=== PATIENT | female | born 2000 | race Caucasian/White ===

== ENCOUNTER 2022-08-01 11:10 | Emergency (ER) | payer OTHER, SELFPAY ==
[2022-08-01 11:16] VITALS: BP 148/82; PULSE 72; RESP 18; TEMP 36.2; O2SAT 99; BMI 27.4
== END 2022-08-01 17:15 | disposition left against medical advice (07) ==
PROVIDERS: Emergency Provider Emergency Medicine
DX: R20.0 Anesthesia of skin (principal); R29.810 Facial weakness
CPT/HCPCS: 99281